=== PATIENT | male | born 1970 | race Two or more races ===

== ENCOUNTER 2022-01-21 11:31 | Emergency (ER) | payer OTHER ==
[~2022-01-21] VITALS: Ht 175.3 cm; Wt 90.7 kg
[2022-01-21] MEDS ORDERED: IRBESARTAN300 MG PO (12:36)
[2022-01-21] MEDS ORDERED: NORVASC2.5 MG PO (12:36)
== END 2022-01-21 16:15 | disposition home or self-care (01) ==
LOC: ER 11:31
DX: J03.90 Acute tonsillitis, unspecified (principal); Z20.822 Contact with and (suspected) exposure to COVID-19